=== PATIENT | female | born 1945 | race Caucasian/White ===

== ENCOUNTER 2017-12-16 06:32 | Day surgery (SDC) | payer OTHER ==
[~2017-12-16] VITALS: Ht 162.6 cm; Wt 74.9 kg
[~2017-12-16 06:32] MED LIST: AMLO10 PO; ASPI81CH PO; ATOR40TA PO; CYCL10 PO; FISH1000 PO; INSULANI SUBQ; LOSA50 PO; METF500 PO; NAPR500 PO; PIOG45 PO; RXCYCL10 PO; UBID100 PO; [UNRECOGNIZED DRUG - REMARK]; [UNRECOGNIZED DRUG - REMARK]
[2017-12-16] MEDS ORDERED: PIOG45 (07:08)
== END 2017-12-16 08:41 | disposition home or self-care (01) ==
LOC: ORSCSDS 06:32
PROVIDERS: Ophthalmology
PROC: 08RJ3JZ Replacement of Right Lens with Synthetic Substitute, Percutaneous Approach (ICD-10-PCS; principal; 2017-12-16 08:00)
DX: H25.11 Age-related nuclear cataract, right eye (principal); J44.9 Chronic obstructive pulmonary disease, unspecified; I10 Essential (primary) hypertension; E11.9 Type 2 diabetes mellitus without complications; Z79.4 Long term (current) use of insulin; Z79.82 Long term (current) use of aspirin; Z79.899 Other long term (current) drug therapy
CPT/HCPCS: 82947; J2250; J3301; J7040; V2632

== ENCOUNTER 2018-01-13 07:21 | Day surgery (SDC) | payer OTHER ==
[~2018-01-13] VITALS: Ht 162.6 cm; Wt 74.7 kg
[~2018-01-13 07:21] MED LIST changes: +PIOG45
== END 2018-01-13 10:00 | disposition home or self-care (01) ==
LOC: ORSCSDS 07:21
PROVIDERS: Ophthalmology
PROC: 08RK3JZ Replacement of Left Lens with Synthetic Substitute, Percutaneous Approach (ICD-10-PCS; principal; 2018-01-13 09:00)
DX: H25.12 Age-related nuclear cataract, left eye (principal); I10 Essential (primary) hypertension; E11.9 Type 2 diabetes mellitus without complications; E78.00 Pure hypercholesterolemia, unspecified; Z79.4 Long term (current) use of insulin; Z79.899 Other long term (current) drug therapy
CPT/HCPCS: 82947; J2250; J3010; J3301; J7040; V2632

== ENCOUNTER 2018-02-07 08:31 | Emergency (ER) | payer OTHER ==
[~2018-02-07] VITALS: Ht 162.6 cm; Wt 74.8 kg
[~2018-02-07 08:31] MED LIST changes: -INSULANI SUBQ; +INSULANPEN SC; +LOSA25 PO; -LOSA50 PO; -METF500 PO; +METF500C PO
[2018-02-07 08:58] LABS: BASOPHILS ABSOLUTE AUTO 0.05 K/mm3 (0.00-0.23); BASOPHILS PERCENT AUTO 1 % (0-2); EOSINOPHILS ABSOLUTE AUTO 0.36 K/mm3 (0.00-0.68); EOSINOPHILS PERCENT AUTO 6 % (0-6); Hematocrit 40.9 % (33.0-51.0); Hemoglobin 13.1 g/dL (11.5-16.0); IMMATURE GRAN ABSOLUTE AUTO 0.02 K/mm3 (0.00-0.10); IMMATURE GRAN PERCENT AUTO 0 % (0-1); LYMPHOCYTES PERCENT AUTO 35 % (21-46); MONOCYTES ABSOLUTE AUTO 0.47 K/mm3 (0.16-1.47); MONOCYTES PERCENT AUTO 7 % (4-13); Mean Corpuscular HGB 30.5 pg (26.0-34.0); Mean Corpuscular Volume 95 fL (80-100); Mean Platelet Volume 10.8 fL (9.1-12.4); NEUTROPHILS ABSOLUTE AUTO 3.31 K/mm3 (1.96-9.15); NEUTROPHILS PERCENT AUTO 51 % (41-73); Platelet Count 248 K/mm3 (150-400); RDW Coefficient Variation 13.2 % (11.7-14.2); RDW Standard Deviation 46.1 fL (35.1-46.3); White Blood Cell Count 6.51 K/mm3 (4.00-11.30)
[2018-02-07 09:21] LABS: Alanine Aminotransfer (ALT/SGP 47 U/L (12-78); Albumin, Blood 4.1 g/dL (3.4-5.0); Albumin/Globulin Ratio 1.1 (0.8-1.8); Alk Phos 65 U/L (50-136); Anion Gap 11 mmol/L (6-16); Aspartate Aminotrans (AST/SGOT 33 U/L (12-37); Bilirubin, Total 0.5 mg/dL (0.1-1.0); Blood Urea Nitrogen 19 mg/dL (8-24); Bun/Creatinine Ratio 24.1 (12.0-20.0); CO2, Blood 23 mmol/L (21-32); Calcium, Blood 8.9 mg/dL (8.5-10.1); Chloride, Blood 110 mmol/L (98-108); Creatinine, Blood 0.79 mg/dL (0.40-1.00); Globulin, Blood 3.7 g/dL (2.2-4.0); Glomerular Filtration Rate >60 (60-); Glucose, Blood 118 mg/dL (70-99); Potassium, Blood 3.9 mmol/L (3.5-5.5); Sodium, Blood 144 mmol/L (136-145); Total Protein, Blood 7.8 g/dL (6.4-8.2)
== END 2018-02-07 10:44 | disposition home or self-care (01) ==
LOC: ER 08:31
PROVIDERS: Emergency Medicine
DX: S29.9XXA Unspecified injury of thorax, initial encounter (principal); R53.81 Other malaise; I10 Essential (primary) hypertension; W55.12XA Struck by horse, initial encounter; Z88.2 Allergy status to sulfonamides; Z88.5 Allergy status to narcotic agent; Z79.84 Long term (current) use of oral hypoglycemic drugs; Z79.4 Long term (current) use of insulin; Z79.899 Other long term (current) drug therapy; Z79.82 Long term (current) use of aspirin; E11.9 Type 2 diabetes mellitus without complications
CPT/HCPCS: 36415; 71260; 80053; 85025; 93005; 93010; 99285-25; Q9967

== ENCOUNTER → 2019-12-21 | Outpatient (CLI) | payer OTHER ==
[~2019-12-21] MED LIST changes: +IRBESARTAN PO
== END | disposition home or self-care (01) ==
LOC: LAB SHORT 08:32 → PLD 08:32
DX: L28.1 Prurigo nodularis (principal)
CPT/HCPCS: 88305

== ENCOUNTER 2020-12-22 10:18 | Observation (INO) | payer OTHER ==
[~2020-12-22] VITALS: Ht 162.6 cm; Wt 71.1 kg
[2020-12-22] MEDS ORDERED: ATOR40TA PO (10:32)
[2020-12-22] MEDS ORDERED: BASAGLAR K100 UNIT/3 SC (10:33)
[2020-12-22] MEDS ORDERED: IRBESARTAN300 M3 PO (10:33)
[2020-12-22 11:11] LABS: Source, Urine Clean Catch
[2020-12-22 11:13] LABS: BASOPHILS ABSOLUTE AUTO 0.05 K/mm3 (0.00-0.23); BASOPHILS PERCENT AUTO 1 % (0-2); EOSINOPHILS ABSOLUTE AUTO 0.36 K/mm3 (0.00-0.68); EOSINOPHILS PERCENT AUTO 5 % (0-6); Hematocrit 37.5 % (33.0-51.0); IMMATURE GRAN ABSOLUTE AUTO 0.04 K/mm3 (0.00-0.10); IMMATURE GRAN PERCENT AUTO 1 % (0-1); LYMPHOCYTES ABSOLUTE AUTO 0.98 K/mm3 (0.84-5.20); LYMPHOCYTES PERCENT AUTO 13 % (21-46); MONOCYTES ABSOLUTE AUTO 0.39 K/mm3 (0.16-1.47); MONOCYTES PERCENT AUTO 5 % (4-13); Mean Corpuscular HGB 31.2 pg (26.0-34.0); Mean Corpuscular Volume 97 fL (80-100); Mean Platelet Volume 11.1 fL (9.1-12.4); NEUTROPHILS ABSOLUTE AUTO 5.59 K/mm3 (1.96-9.15); NEUTROPHILS PERCENT AUTO 75 % (41-73); Platelet Count 194 K/mm3 (150-400); RDW Coefficient Variation 13.3 % (11.7-14.2); RDW Standard Deviation 47.8 fL (35.1-46.3); Red Blood Cell Count 3.85 M/mm3 (3.80-5.20); White Blood Cell Count 7.41 K/mm3 (4.00-11.30)
[2020-12-22 11:17] LABS: Appearance, Urine Clear (Clear); Bilirubin, Urine Neg (Neg); Blood, Urine Neg (Neg); Color, Urine Yellow (P-Yellow); Glucose Qualitative, Urine Neg (Neg); Ketones, Urine 3+ (Neg); Leukocyte Esterase, Urine Neg (Neg); Nitrite, Urine Neg (Neg); Protein, Urine 3+ (Neg); Urobilinogen, Urine NORM (Normal)
[2020-12-22 11:36] LABS: Magnesium, Blood 1.7 mg/dL (1.6-2.4); Troponin I 0.081 ng/mL (0.000-0.040)
[2020-12-22 11:37] LABS: Alanine Aminotransfer (ALT/SGP 38 U/L (12-78); Albumin, Blood 3.6 g/dL (3.4-5.0); Albumin/Globulin Ratio 1.1 (0.8-1.8); Alk Phos 53 U/L (50-136); Anion Gap 8 mmol/L (6-16); Aspartate Aminotrans (AST/SGOT 24 U/L (12-37); Bacteria Rare /hpf; Bilirubin, Total 0.4 mg/dL (0.1-1.0); Blood Urea Nitrogen 21 mg/dL (8-24); Bun/Creatinine Ratio 27.2 (12.0-20.0); CO2, Blood 23 mmol/L (21-32); Calcium, Blood 8.6 mg/dL (8.5-10.1); Chloride, Blood 110 mmol/L (98-108); Creatinine, Blood 0.77 mg/dL (0.40-1.00); Globulin, Blood 3.2 g/dL (2.2-4.0); Glomerular Filtration Rate >60 (60-); Glucose, Blood 166 mg/dL (70-99); Red Blood Cells, Urine 0-2 /hpf (0-2); Sodium, Blood 141 mmol/L (136-145); Squamous Epithelial Cells Few /hpf (Few); Total Protein, Blood 6.8 g/dL (6.4-8.2)
[2020-12-22] MEDS ORDERED: INSULANI SC (13:10)
--- NOTE | 2020-12-22 14:30 | NUR ---
PT ARRIVED TO THE MEDICAL FLOOR FROM THE ER VIA WHEELCHAIR, A/OX3, PLEASANT AND COOPERATIVE, THE PT WAS UP TO THE BATHROOM STEADY ON HER FEET DENIED ANY DIZZINESS, SOB, OR NAUSEA, PT WAS ORIENTED TO THE ROOM LAY OUT AND CALL SYSTEM, CALL LIGHT IN REACH, WILL CONTINUE TO MONITOR AND ASSESS FOR CHANGES
--- NOTE | 2020-12-22 19:55 | NUR ---
ELEVATED TROPONIN TROPONIN HAS INCREASED SINCE LAST BLOOD DRAW, PT IS ASYMPTOMATIC AND THERE ARE NO CHANGES ON TELE. ECHO WAS BEEN SHORTLY AFTER LAB RESULTS WERE RECEIVED. JOS ALFREDO NP CALLED AND NOTIFIED OF TROPONIN. 325 MG ASPRIN ORDERED X1, ECHO TO BE DONE IN AM. WILL CONTINUE TO MONITOR.
--- NOTE | 2020-12-23 00:25 | NUR ---
HEART RATE CALL FROM [facility] AROUND 0000 THAT PT HR HAS DROPPED IN THE MID 40'S. PT IS ASYMPTOMATIC AND SLEEPING. DR GUARDADO CALLED AND NOTIFIED. NO ADDITIONAL ORDERS GIVEN JUST STATES TO WATCH FOR NOW. THIRD SET OF SERIAL TROPONIN ORDERERED.
--- NOTE | 2020-12-23 04:19 | NUR ---
SHIFT SUMMARY PT HAS RESTED MOST OF THE NIGHT. SHE HAS NO COMPLAINTS OF CHEST PAIN, SERIAL TROPONINS HAVE TRENDED DOWN, AFTER A BUMP EARLY IN THE EVENING DURING SHIFT CHANGE. PT MEDICATED X1 FOR HYPERTENSION WITH AFFECT. ECHO IS SCHEDULED FOR TODAY. ORTHOSTATIC VITALS NEGATIVE. PT HAS BEEN A/XO4, PLESANT WITH CARE. 1 PA TO THE BATHROOM. BED IN LOWEST POSITION, CALL LIGHT WITHIN REACH.
[2020-12-23] MEDS ORDERED: AMLO10 PO (13:47)
[2020-12-23] MEDS ORDERED: LORA.5 PO (13:48)
[2020-12-23] MEDS ORDERED: HYDRA25 PO (14:16)
--- NOTE | 2020-12-23 14:52 | NUR ---
echocardiogram complete
--- NOTE | 2020-12-23 16:17 | NUR ---
PT DISCHARGED THE PT VERBALIZED UNDERSTANDING OF THE DC INSTRUCTIONS, PT WAS REMINDED TO CALL HER PCP ON THURSDAY TO SCHEDULE A FOLLOW UP APPOINTMENT, THE PTS PRESCRIPTIONS WERE FAXED TO [facility] REQUESTED, THE PT DENIED ANY CHEST PAIN ,SOB,NAUSEA OR DIZZINESS AT THE TIME OF DC, THE PT WAS TRANSFERED VIA WHEELCHAIR ACCOMPANIED BY [employer] SUPER[employer]OR, PT WAS Juanpablo/LIN
[2020-12-23] MEDS ORDERED: ZEBUTAL 50-3251 EAC1 PO (23:55)
== END 2020-12-23 15:49 | disposition home or self-care (01) ==
LOC: ER 10:18 → ERHOLD 10:19 → MEDS 13:52
PROVIDERS: Emergency Medicine; ADMIT Internal Medicine
DX: R55 Syncope and collapse (principal); R77.8 Other specified abnormalities of plasma proteins; S00.03XA Contusion of scalp, initial encounter; W18.30XA Fall on same level, unspecified, initial encounter; E11.9 Type 2 diabetes mellitus without complications; I10 Essential (primary) hypertension; J44.9 Chronic obstructive pulmonary disease, unspecified; E78.5 Hyperlipidemia, unspecified; Z88.5 Allergy status to narcotic agent; Z88.2 Allergy status to sulfonamides; Z79.4 Long term (current) use of insulin
CPT/HCPCS: 36415; 70450; 71046; 80053; 81001; 82947; 83735; 84484; 85025; 93005; 93010; 93306; 96372; 96374; 96375; 97161; 97530; 99285-25; A9270; G0378; J0360; J1650

== ENCOUNTER 2020-12-23 20:29 | Emergency (ER) | payer OTHER ==
[~2020-12-23] VITALS: Ht 162.6 cm; Wt 72.6 kg
[~2020-12-23 20:29] MED LIST changes: +BASAGLAR K100 UNIT/3 SC; +HYDRA25 PO; +INSULANI SC; +IRBESARTAN300 M3 PO; +LORA.5 PO
[2020-12-23 20:50] LABS: Source, Urine Clean Catch
[2020-12-23 20:53] LABS: BASOPHILS ABSOLUTE AUTO 0.04 K/mm3 (0.00-0.23); BASOPHILS PERCENT AUTO 1 % (0-2); EOSINOPHILS ABSOLUTE AUTO 0.19 K/mm3 (0.00-0.68); EOSINOPHILS PERCENT AUTO 3 % (0-6); IMMATURE GRAN ABSOLUTE AUTO 0.05 K/mm3 (0.00-0.10); IMMATURE GRAN PERCENT AUTO 1 % (0-1); LYMPHOCYTES ABSOLUTE AUTO 1.25 K/mm3 (0.84-5.20); LYMPHOCYTES PERCENT AUTO 16 % (21-46); MONOCYTES ABSOLUTE AUTO 0.53 K/mm3 (0.16-1.47); MONOCYTES PERCENT AUTO 7 % (4-13); Mean Corpuscular HGB 30.7 pg (26.0-34.0); Mean Corpuscular HGB Conc 32.5 g/dL (31.5-36.5); Mean Corpuscular Volume 95 fL (80-100); Mean Platelet Volume 11.1 fL (9.1-12.4); NEUTROPHILS ABSOLUTE AUTO 5.62 K/mm3 (1.96-9.15); NEUTROPHILS PERCENT AUTO 73 % (41-73); Platelet Count 218 K/mm3 (150-400); RDW Coefficient Variation 13.5 % (11.7-14.2); RDW Standard Deviation 46.8 fL (35.1-46.3); Red Blood Cell Count 4.23 M/mm3 (3.80-5.20); White Blood Cell Count 7.68 K/mm3 (4.00-11.30)
[2020-12-23 20:54] LABS: Bilirubin, Urine Neg (Neg); Blood, Urine Neg (Neg); Glucose Qualitative, Urine 2+ (Neg); Ketones, Urine 2+ (Neg); Leukocyte Esterase, Urine Neg (Neg); Nitrite, Urine Neg (Neg); Protein, Urine 2+ (Neg); Specific Gravity, Urine 1.015 (1.003-1.022); Urobilinogen, Urine NORM (Normal)
[2020-12-23 20:59] LABS: Appearance, Urine Clear (Clear); Color, Urine Pale Yellow (P-Yellow)
[2020-12-23 21:01] LABS: Bacteria Few /hpf; Red Blood Cells, Urine Rare /hpf (0-2); Squamous Epithelial Cells Few /hpf (Few); White Blood Cells, Urine Not Seen /hpf (0-5)
[2020-12-23 21:05] LABS: Alanine Aminotransfer (ALT/SGP 37 U/L (12-78); Albumin, Blood 3.9 g/dL (3.4-5.0); Albumin/Globulin Ratio 1.1 (0.8-1.8); Alk Phos 52 U/L (50-136); Anion Gap 9 mmol/L (6-16); Aspartate Aminotrans (AST/SGOT 26 U/L (12-37); Bilirubin, Total 0.5 mg/dL (0.1-1.0); Blood Urea Nitrogen 16 mg/dL (8-24); Bun/Creatinine Ratio 18.8 (12.0-20.0); CO2, Blood 22 mmol/L (21-32); Calcium, Blood 9.4 mg/dL (8.5-10.1); Chloride, Blood 107 mmol/L (98-108); Creatinine, Blood 0.85 mg/dL (0.40-1.00); Globulin, Blood 3.7 g/dL (2.2-4.0); Glomerular Filtration Rate >60 (60-); Glucose, Blood 204 mg/dL (70-99); Potassium, Blood 3.6 mmol/L (3.5-5.5); Sodium, Blood 138 mmol/L (136-145); Total Protein, Blood 7.6 g/dL (6.4-8.2)
[2020-12-23] MEDS ORDERED: ZEBUTAL 50-3251 EAC1 PO (23:55)
== END 2020-12-24 00:05 | disposition home or self-care (01) ==
LOC: ER 20:29
PROVIDERS: Emergency Medicine
DX: R51.9 Headache, unspecified (principal); Z88.2 Allergy status to sulfonamides; Z88.5 Allergy status to narcotic agent; Z79.82 Long term (current) use of aspirin; Z79.899 Other long term (current) drug therapy
CPT/HCPCS: 70450; 80053; 81001; 85025; 93005; 93010; 96365; 96375; 99284-25; J1200; J2765; J3475; J7030

== ENCOUNTER 2020-12-29 11:25 | Emergency (ER) | payer OTHER ==
[~2020-12-29] VITALS: Ht 154.9 cm; Wt 70.3 kg
[~2020-12-29 11:25] MED LIST changes: +ZEBUTAL 50-3251 EAC1 PO
[2020-12-29 11:46] LABS: BASOPHILS ABSOLUTE AUTO 0.05 K/mm3 (0.00-0.23); BASOPHILS PERCENT AUTO 1 % (0-2); EOSINOPHILS ABSOLUTE AUTO 0.14 K/mm3 (0.00-0.68); EOSINOPHILS PERCENT AUTO 2 % (0-6); Hematocrit 41.2 % (33.0-51.0); Hemoglobin 13.3 g/dL (11.5-16.0); IMMATURE GRAN ABSOLUTE AUTO 0.02 K/mm3 (0.00-0.10); IMMATURE GRAN PERCENT AUTO 0 % (0-1); LYMPHOCYTES ABSOLUTE AUTO 1.46 K/mm3 (0.84-5.20); LYMPHOCYTES PERCENT AUTO 21 % (21-46); MONOCYTES ABSOLUTE AUTO 0.48 K/mm3 (0.16-1.47); MONOCYTES PERCENT AUTO 7 % (4-13); Mean Corpuscular HGB 30.9 pg (26.0-34.0); Mean Corpuscular HGB Conc 32.3 g/dL (31.5-36.5); Mean Corpuscular Volume 96 fL (80-100); NEUTROPHILS ABSOLUTE AUTO 4.95 K/mm3 (1.96-9.15); NEUTROPHILS PERCENT AUTO 70 % (41-73); Platelet Count 254 K/mm3 (150-400); RDW Coefficient Variation 13.2 % (11.7-14.2); RDW Standard Deviation 47.3 fL (35.1-46.3); Red Blood Cell Count 4.31 M/mm3 (3.80-5.20)
[2020-12-29 12:05] LABS: Alanine Aminotransfer (ALT/SGP 32 U/L (12-78); Albumin, Blood 3.8 g/dL (3.4-5.0); Albumin/Globulin Ratio 1.2 (0.8-1.8); Alk Phos 51 U/L (50-136); Anion Gap 7 mmol/L (6-16); Aspartate Aminotrans (AST/SGOT 18 U/L (12-37); Bilirubin, Total 0.4 mg/dL (0.1-1.0); Blood Urea Nitrogen 33 mg/dL (8-24); Bun/Creatinine Ratio 34.4 (12.0-20.0); CO2, Blood 22 mmol/L (21-32); Chloride, Blood 110 mmol/L (98-108); Creatinine, Blood 0.96 mg/dL (0.40-1.00); Globulin, Blood 3.3 g/dL (2.2-4.0); Glomerular Filtration Rate >60 (60-); Glucose, Blood 212 mg/dL (70-99); Potassium, Blood 4.5 mmol/L (3.5-5.5); Sodium, Blood 139 mmol/L (136-145); Total Protein, Blood 7.1 g/dL (6.4-8.2); Troponin I <0.015 ng/mL (0.000-0.040)
== END 2020-12-29 15:47 | disposition home or self-care (01) ==
LOC: ER 11:25
PROVIDERS: Student in an Organized Health Care Education/Training Program
DX: R07.9 Chest pain, unspecified (principal); Z79.899 Other long term (current) drug therapy; Z79.84 Long term (current) use of oral hypoglycemic drugs; Z88.2 Allergy status to sulfonamides; Z88.5 Allergy status to narcotic agent; E11.9 Type 2 diabetes mellitus without complications; I10 Essential (primary) hypertension; I25.2 Old myocardial infarction
CPT/HCPCS: 71046; 80053; 84484; 85025; 93005; 93010; 99285-25

== ENCOUNTER 2021-03-25 05:45 | Day surgery (SDC) | payer OTHER ==
[~2021-03-25] VITALS: Ht 162.6 cm; Wt 75.0 kg
[2021-03-25] MEDS ORDERED: METO25ER PO (07:58)
[2021-03-25] MEDS ORDERED: PIOG30 PO (08:00)
[2021-03-25] MEDS ORDERED: FISH OIL-VIT D1 EACH PO (08:00)
[2021-03-25] MEDS ORDERED: ALDACTONE25 MG PO (08:01)
[2021-03-25] MEDS ORDERED: COENZYME Q10100 MG PO (08:02)
[2021-03-25] MEDS ORDERED: FOLI1 PO (08:02)
[2021-03-25] MEDS ORDERED: CIDAFLEX TABLE1 EAC1 PO (08:02)
[2021-03-25] MEDS ORDERED: C COMPLEX1000 M1 PO (08:03)
[2021-03-25 10:22] LABS: PCO2 Arterial 40.5 mmHg (35-45); PO2 Arterial 74.6 mmHg (80-100); pH Blood Arterial 7.37 (7.35-7.45)
--- NOTE | 2021-03-25 13:00 | NUR ---
DR. HWANG AT BEDSIDE.
--- NOTE | 2021-03-25 13:41 | NUR ---
ECHO BEING PERFORMED.
== END 2021-03-25 15:00 | disposition home or self-care (01) ==
LOC: MHTC 05:45
PROVIDERS: Internal Medicine Cardiovascular Disease
DX: I25.10 Atherosclerotic heart disease of native coronary artery without angina pectoris (principal); I08.0 Rheumatic disorders of both mitral and aortic valves; I10 Essential (primary) hypertension; J44.9 Chronic obstructive pulmonary disease, unspecified; E11.9 Type 2 diabetes mellitus without complications; E78.5 Hyperlipidemia, unspecified; E66.3 Overweight; Z68.28 Body mass index [BMI] 28.0-28.9, adult; Z79.84 Long term (current) use of oral hypoglycemic drugs; Z88.5 Allergy status to narcotic agent; Z88.2 Allergy status to sulfonamides
CPT/HCPCS: 76937; 82803; 93005; 93010; 93308; 93321; 93460; 99152; 99153; C1760; C1769; C1894; J0690; J1644; J2250; J3010; J7030; J7050; Q9967

== ENCOUNTER 2021-05-08 01:31 | Emergency (ER) | payer OTHER ==
[~2021-05-08] VITALS: Ht 152.4 cm; Wt 68.0 kg
[~2021-05-08 01:31] MED LIST changes: +ALDACTONE25 MG PO; +C COMPLEX1000 M1 PO; +CIDAFLEX TABLE1 EAC1 PO; +COENZYME Q10100 MG PO; +FISH OIL-VIT D1 EACH PO; +FOLI1 PO; +METO25ER PO; +PIOG30 PO
[2021-05-08] MEDS ORDERED: FERROUS SULFAT325 M3 PO (02:12)
[2021-05-08 02:14] LABS: Source, Urine Clean Catch
[2021-05-08 02:25] LABS: Bilirubin, Urine Neg (Neg); Blood, Urine Neg (Neg); Glucose Qualitative, Urine Neg (Neg); Ketones, Urine Neg (Neg); Leukocyte Esterase, Urine Neg (Neg); Nitrite, Urine Neg (Neg); Protein, Urine Neg (Neg); Specific Gravity, Urine 1.015 (1.003-1.022); Urobilinogen, Urine NORM (Normal)
[2021-05-08 02:25] LABS: BASOPHILS ABSOLUTE AUTO 0.03 K/mm3 (0.00-0.23); BASOPHILS PERCENT AUTO 0 % (0-2); EOSINOPHILS ABSOLUTE AUTO 0.36 K/mm3 (0.00-0.68); EOSINOPHILS PERCENT AUTO 3 % (0-6); Hematocrit 28.3 % (33.0-51.0); IMMATURE GRAN ABSOLUTE AUTO 0.04 K/mm3 (0.00-0.10); IMMATURE GRAN PERCENT AUTO 0 % (0-1); LYMPHOCYTES ABSOLUTE AUTO 1.24 K/mm3 (0.84-5.20); LYMPHOCYTES PERCENT AUTO 11 % (21-46); MONOCYTES ABSOLUTE AUTO 0.74 K/mm3 (0.16-1.47); MONOCYTES PERCENT AUTO 6 % (4-13); Mean Corpuscular HGB 31.4 pg (26.0-34.0); Mean Corpuscular HGB Conc 31.8 g/dL (31.5-36.5); Mean Corpuscular Volume 99 fL (80-100); Mean Platelet Volume 10.2 fL (9.1-12.4); NEUTROPHILS ABSOLUTE AUTO 9.45 K/mm3 (1.96-9.15); NEUTROPHILS PERCENT AUTO 80 % (41-73); Platelet Count 649 K/mm3 (150-400); RDW Coefficient Variation 14.4 % (11.7-14.2); RDW Standard Deviation 51.3 fL (35.1-46.3); Red Blood Cell Count 2.87 M/mm3 (3.80-5.20); White Blood Cell Count 11.86 K/mm3 (4.00-11.30)
[2021-05-08 02:27] LABS: Appearance, Urine Clear (Clear); Color, Urine Yellow (P-Yellow)
[2021-05-08 02:37] LABS: Albumin/Globulin Ratio 0.8 (0.8-1.8); Bilirubin, Total 0.4 mg/dL (0.1-1.0); Bun/Creatinine Ratio 27.6 (12.0-20.0); Creatinine, Blood 1.23 mg/dL (0.40-1.00); Globulin, Blood 3.8 g/dL (2.2-4.0); Potassium, Blood 4.8 mmol/L (3.5-5.5); Total Protein, Blood 6.8 g/dL (6.4-8.2)
[2021-05-08 03:00] LABS: Magnesium, Blood 1.8 mg/dL (1.6-2.4)
== END 2021-05-08 04:56 | disposition home or self-care (01) ==
LOC: ER 01:31
PROVIDERS: Emergency Medicine
DX: K29.70 Gastritis, unspecified, without bleeding (principal); E86.0 Dehydration; E11.9 Type 2 diabetes mellitus without complications; I25.2 Old myocardial infarction; I10 Essential (primary) hypertension; E78.5 Hyperlipidemia, unspecified; Z88.2 Allergy status to sulfonamides; Z88.5 Allergy status to narcotic agent; Z79.899 Other long term (current) drug therapy
CPT/HCPCS: 74176; 80053; 81003; 83605; 83690; 83735; 84145; 85025; 93005; 93010; 96374; 96375; 99284-25; A9270; J1170; J2405; J7120

== ENCOUNTER 2022-01-27 07:43 | Day surgery (SDC) | payer OTHER ==
[~2022-01-27] VITALS: Ht 162.6 cm; Wt 66.5 kg
[~2022-01-27 07:43] MED LIST changes: +FERROUS SULFAT325 M3 PO
== END 2022-01-27 10:21 | disposition home or self-care (01) ==
LOC: ORSCSDS 07:43
PROVIDERS: Internal Medicine Gastroenterology
PROC: 0DB98ZX Excision of Duodenum, Via Natural or Artificial Opening Endoscopic, Diagnostic (ICD-10-PCS; principal; 2022-01-27 09:00)
PROC: 0DBN8ZX Excision of Sigmoid Colon, Via Natural or Artificial Opening Endoscopic, Diagnostic (ICD-10-PCS; principal; 2022-01-27 09:00)
DX: Z12.11 Encounter for screening for malignant neoplasm of colon (principal); Z86.010 Personal history of colon polyps; D37.4 Neoplasm of uncertain behavior of colon; K29.70 Gastritis, unspecified, without bleeding; K29.80 Duodenitis without bleeding; Z80.0 Family history of malignant neoplasm of digestive organs; K57.30 Diverticulosis of large intestine without perforation or abscess without bleeding; I25.10 Atherosclerotic heart disease of native coronary artery without angina pectoris; E11.9 Type 2 diabetes mellitus without complications; Z79.899 Other long term (current) drug therapy; Z79.82 Long term (current) use of aspirin; Z79.4 Long term (current) use of insulin
CPT/HCPCS: 82947; 88305; J2704; J7120

== ENCOUNTER → 2025-04-18 | Outpatient (CLI) | payer OTHER | LOC: LAB 08:04 → LAB SHORT 08:04 | DX: L28.1 Prurigo nodularis (principal) | CPT/HCPCS: 88305 ==